=== PATIENT | male | born 1995 | race Caucasian/White ===

== ENCOUNTER 2019-01-10 22:17 | Emergency (ER) | payer BC ==
[2019-01-10] MEDS: DIPHTH/TET/ACEL PERTUSS (ADULT) 0.5 ML VIAL IM* (23:03)
[2019-01-10] MEDS: LIDOCAINE 2%/EPI MPF (SDV) 20 ML VIAL INJ (23:07)
== END 2019-01-11 00:10 | disposition home or self-care (01) ==
LOC: FTE 01-11 00:10
DX: S61.211A Laceration without foreign body of left index finger without damage to nail, initial encounter (principal); W26.0XXA Contact with knife, initial encounter; Y92.9 Unspecified place or not applicable; Z23 Encounter for immunization
CPT/HCPCS: 12001; 90471; 90715; 99283-25